=== PATIENT | male | born 1960 | race Caucasian/White ===

== ENCOUNTER 2017-01-08 06:49 | Inpatient (IN) | payer OTHER ==
[2017-01-05 11:00] VITALS: BMI 27.8
[2017-01-08] MEDS ORDERED: CEFAZOLIN 2 GM in DEXTROSE 5%-WATER - 100 ML IVPB ONE (07:13)
[2017-01-08] MEDS ORDERED: oxyCODONE HCL 10 MG SUSTAINED ACTING TABLET PO STA (07:13)
--- NOTE | 2017-01-08 07:14 | HP ---
History & Physical Update - History History: No Change - Physical Physical: No Change - Assessment Assessment: No Change - Plan Plan: No Change
[2017-01-08] MEDS ORDERED: THROMBIN (BOVINE) 5,000 UNIT VIAL TP ONE (07:26)
[2017-01-08] MEDS ORDERED: LIDOCAINE 1%/EPI 1:100000 (20 ML MULTI DOSE VIAL) ONE (07:27)
[2017-01-08] MEDS ORDERED: GUM MASTIC/STORAX/MSAL/ALCOHOL 1 DRP DROPSBTL MC ONE (07:27)
[2017-01-08] MEDS ORDERED: BUPIVACAINE HCL/PF 2.5 MG/ML - 30 ML VIAL IJ ONE (07:27)
[2017-01-08] MEDS ORDERED: MIDAZOLAM HCL 2 MG/2 ML SINGLE DOSE VIAL ONE ×2 (07:47→09:03)
[2017-01-08] MEDS ORDERED: PROPOFOL 20 ML ONE (07:47)
[2017-01-08] MEDS ORDERED: ceFAZolin SODIUM 1 GM VIAL ONE (07:48)
[2017-01-08] MEDS ORDERED: KETOROLAC TROMETHAMINE 30 MG/1 ML VIAL ONE (07:48)
[2017-01-08] MEDS ORDERED: ONDANSETRON 4 MG/2 ML VIAL ONE (07:48)
[2017-01-08] MEDS ORDERED: DEXAMETHASONE SOD PHOSPHATE 4 MG/1 ML VIAL ONE (07:48)
[2017-01-08] MEDS ORDERED: SUCCINYLCHOLINE CHLORIDE 200 MG/10 ML VIAL ONE (07:49)
[2017-01-08] MEDS ORDERED: BUPIVACAINE HCL/PF 0.5% (5MG/ML) 10 ML VIAL ONE (08:14)
[2017-01-08] MEDS ORDERED: ePHEDrine SULFATE 50 MG/1 ML AMPULE ONE (08:38)
[2017-01-08] MEDS ORDERED: LIDOCAINE 1%/EPI 1:100000 (50 ML MULTI DOSE VIAL) INF ONE (08:40)
[2017-01-08] MEDS ORDERED: LACTATED RINGERS SOLUTION 1,000 ML IV SCH ×2 (09:00→10:45)
[2017-01-08] MEDS ORDERED: ONDANSETRON 4 MG/2 ML VIAL IVPUSH PRN (09:00)
[2017-01-08] MEDS ORDERED: BUPIVACAINE HCL/PF 0.25% (2.5MG/ML) 10 ML VIAL IJ ONE (10:36)
[2017-01-08] MEDS ORDERED: ACETAMINOPHEN 1000 MG/100 ML VIAL (NON FORMULARY) IVPB PRN (10:41)
[2017-01-08] MEDS ORDERED: oxyCODONE HCL 5 MG TABLET PO PRN (10:41)
[2017-01-08] MEDS ORDERED: CYCLOBENZAPRINE HCL 10 MG TABLET (FP) PO PRN (10:41)
[2017-01-08] MEDS ORDERED: ONDANSETRON 4 MG/2 ML VIAL IVPB PRN (10:41)
[2017-01-08] MEDS ORDERED: diazePAM CARPU-JECT 10 MG/2 ML DISP.SYRIN IVPUSH ONE (10:46)
--- NOTE | 2017-01-08 11:02 | OP ---
Operative Note - Note: Operative Date: 01/08/17 Pre-Operative Diagnosis: Spondylolithesis L4-L5, lumbar radiculopathy Operation: Posterior lumbar decompression/fusion/instrumentation/transforaminal lumbar interbody fusion L4-L5 with allograft and neuromonitoring Post-Operative Diagnosis: Same as Pre-op Surgeon: Terrell Quintero Psychiatric Arnp: Justin Villalobos Anesthesiologist/YOUTH ACCOMMODATION SUPPORT WORKER: Tino Deshpande Anesthesia: Spinal Estimated Blood Loss (mls): 20 Fluid Volume Replaced (mls): 1,000 Operative Report Dictated: Yes
--- NOTE | 2017-01-08 11:03 | SURG ---
Surgery Tax Staff Accountant Note Tax Staff Accountant: Justin Villalobos PA-C Date of Service: 01/08/17 Diagnosis: Spondylolithesis L4-L5, lumbar radiculopathy Procedure: Posterior lumbar decompression/fusion/instrumentation/transforaminal lumbar interbody fusion L4-L5 with allograft and neuromonitoring I was present for the entirety of the operative procedure. For further detail, please refer to operative report. Visit type - Case Type Case Type: Scheduled Admission - New patient This patient is new to me today: Yes Date on this admission: 01/08/17
[2017-01-08] MEDS: traMADol HCL 50 MG TABLET PO PRN (14:50)
[2017-01-08] MEDS: KETOROLAC TROMETHAMINE 30 MG/1 ML VIAL IVPUSH PRN ×2 (14:56→21:13)
[2017-01-08] MEDS: CEFAZOLIN 2 GM/D5W 50 ML IVPB SCH (18:06)
[2017-01-08] MEDS: oxyCODONE HCL 5 MG TABLET PO PRN (18:14)
[2017-01-08] MEDS: diazePAM 2 MG TABLET PO SCH (19:51)
[2017-01-09] MEDS: oxyCODONE HCL 5 MG TABLET PO PRN ×3 (00:32→09:56)
[2017-01-09] MEDS: CEFAZOLIN 2 GM/D5W 50 ML IVPB SCH ×2 (01:27→09:58)
[2017-01-09] MEDS: morphine CARPU-JECT 4 MG/1 ML DISP.SYRIN IVPUSH PRN ×2 (01:41→06:29)
[2017-01-09] MEDS: diazePAM 2 MG TABLET PO SCH (04:13)
[2017-01-09 06:19] VITALS: BP 121/66; PULSE 77; TEMP 98.6
--- NOTE | 2017-01-09 06:59 | DS ---
Physical Exam: SUBJECTIVE: POD #1 s/p L4/5 TLIF. Patient seen and examined. States he's been oob and ambulating hallways unassisted. Tolerating PO diet. Voiding spontaneously. Denies n/v/f/c, CP, SOB, muscle weakness or tingling. OBJECTIVE: Last Vital Signs Temp Pulse Resp BP Pulse Ox 98.6 F 77 20 121/66 100 01/09/17 06:00 01/09/17 06:00 01/09/17 06:00 01/09/17 06:00 01/09/17 06:17 PHYSICAL EXAM GENERAL: The patient is awake, alert, and fully oriented, in no acute distress. HEAD: Normal with no signs of trauma. EYES: PERRL, extraocular movements intact, sclera anicteric, conjunctiva clear. ENT: Ears normal, nares patent, oropharynx clear without exudates, moist mucous membranes. NECK: Trachea midline, full range of motion, supple. LUNGS: CTA b/l anteriorly HEART: RRR ABDOMEN: Soft, NT. ND. EXTREMITIES: 2+ pulses, warm, well-perfused, no edema. NEUROLOGICAL: CN II - XII grossly intact. Normal speech, gait not observed. PSYCH: Normal mood, normal affect. SKIN: Lumbar surgical incision x2 intact. No hematoma. No erythema. Steri strips intact. (New dressing applied on rounds) HOSPITAL COURSE: Date of Admission:0717 Date of Discharge: 01/09/17 The patient was admitted to the Med-Surg Unit after an elective repair of their L4-L5 spondylolithesis. Now, s/p Posterior lumbar decompression/fusion/ instrumentation/transforaminal lumbar interbody fusion L4-L5 with allograft and neuromonitoring. The day of surgery, the patient ambulated the hallways with assistance. Narcotic and non-narcotic pain management control was achieved with an oral and IV approach. POD #1, the surgical drain was removed fully intact and without incident. An xray was obtained and confirmed hardware placement at L4-L5, no fractures or dislocations. Cynthia-operative IV ABX were administered. DVT prophylaxis was achieved with SCDs and early ambulation. The patient ambulated with Physical Therapy and no services were recommended upon discharge. Narcotic scripts and or muscle relaxants were checked with [place] [facility] prior to escribe. The discharge instructions and an oral pain management plan were reviewed with the patient. All questions answered. Above plan discussed with Dr. Quintero and agreed. Minutes to complete discharge: 25 <Justin Villalobos P - Last Filed: 01/09/17 07:16> Physical Exam: SUBJECTIVE: Patient seen and examined OBJECTIVE: Vital Signs Temperature 98.6 F 01/09/17 06:00 Pulse Rate 77 01/09/17 06:00 Respiratory Rate 20 01/09/17 07:46 Blood Pressure 121/66 01/09/17 06:00 O2 Sat by Pulse Oximetry (%) 100 01/09/17 07:46 PHYSICAL EXAM GENERAL: The patient is awake, alert, and fully oriented, in no acute distress. HEAD: Normal with no signs of trauma. EYES: PERRL, extraocular movements intact, sclera anicteric, conjunctiva clear. ENT: Ears normal, nares patent, oropharynx clear without exudates, moist mucous membranes. NECK: Trachea midline, full range of motion, supple. LUNGS: Breath sounds equal, clear to auscultation bilaterally, no wheezes, no crackles, no accessory muscle use. HEART: Regular rate and rhythm, S1, S2 without murmur, rub or gallop. ABDOMEN: Soft, nontender, nondistended, normoactive bowel sounds, no guarding, no rebound, no hepatosplenomegaly, no masses. EXTREMITIES: 2+ pulses, warm, well-perfused, no edema. NEUROLOGICAL: Cranial nerves II through XII grossly intact. Normal speech, gait not observed. PSYCH: Normal mood, normal affect. SKIN: Warm, dry, normal turgor, no rashes or lesions noted. LABS CBC,CMP WBC 5.9 K/mm3 (4.0-10.8) 01/09/17 07:56 RBC 4.90 M/mm3 (4.00-5.60) 01/09/17 07:56 Hgb 14.7 GM/dl (11.7-16.9) 01/09/17 07:56 Hct 43.6 % (35.4-49) 01/09/17 07:56 MCV 89.0 fl (80-96) 01/09/17 07:56 MCH 29.9 pg (25.7-33.7) 01/09/17 07:56 MCHC 33.6 g/dl (32.0-35.9) 01/09/17 07:56 RDW 13.1 % (11.9-15.9) 01/09/17 07:56 Plt Count 160 K/MM3 (134-434) 01/09/17 07:56 MPV 9.2 fl (7.5-11.1) 01/09/17 07:56 Sodium 136 mmol/L (136-145) 01/09/17 07:56 Potassium 4.0 mmol/L (3.5-5.1) 01/09/17 07:56 Chloride 103 mmol/L (98-107) 01/09/17 07:56 Carbon Dioxide 29 mmol/L (22-28) H 01/09/17 07:56 Anion Gap 4 (8-16) L 01/09/17 07:56 BUN 17 mg/dl (7-18) 01/09/17 07:56 Creatinine 1.0 mg/dl (0.6-1.3) 01/09/17 07:56 Random Glucose 101 mg/dl (74-106) 01/09/17 07:56 Calcium 8.6 mg/dl (8.4-10.2) 01/09/17 07:56 HOSPITAL COURSE: Date of Admission:01/08/17 Date of Discharge: 01/09/17 The patient was admitted to the Med-Surg Unit after an elective repair of their L4-5 stenosis, reherniation. The day of surgery, the patient ambulated the hallways with assistance. Narcotic and non-narcotic pain management control was achieved with an oral and IV approach. POD #1, the surgical drain was removed fully intact and without incident. An xray was obtained and confirmed hardware placement at L4-5, no fractures or dislocations. Cynthia-operative IV ABX were administered. DVT prophylaxis was achieved with SCDs and early ambulation. The patient ambulated with Physical Therapy and no services were recommended upon discharge. Narcotic scripts and or muscle relaxants were checked with [place] [facility] prior to escibe. The discharge instructions and an oral pain management plan were reviewed with the patient. All questions answered. Above plan discussed with Dr. Quintero and agreed. Patient seen and examined Agree with Above D/C Planning <Terrell Quintero - Last Filed: 01/09/17 15:48> Visit type - Case Type Case Type: Scheduled Admission - New patient This patient is new to me today: Yes Date on this admission: 01/09/17 <Justin Villalobos - Last Filed: 01/09/17 07:16>
[2017-01-09 08:23] LABS: MCH 29.9 pg (25.7-33.7); MCHC 33.6 g/dl (32.0-35.9); MEAN PLT VOLUME 9.2 fl (7.5-11.1); PLATELET COUNT 160 K/MM3 (134-434); RDW 13.1 % (11.9-15.9); WHITE BLOOD COUNT 5.9 K/mm3 (4.0-10.8)
[2017-01-09 08:32] LABS: ANION GAP 4 (8-16); CALCIUM 8.6 mg/dl (8.4-10.2); CO2 29 mmol/L (22-28); GLUCOSE,RANDOM 101 mg/dl (74-106)
[2017-01-09] MEDS: traMADol HCL 50 MG TABLET PO PRN (09:58)
[2017-01-09] MEDS: KETOROLAC TROMETHAMINE 30 MG/1 ML VIAL IVPUSH PRN (10:08)
[2017-01-09] MEDS ORDERED: diazePAM 2 MG TABLET PO SCH (12:00)
[2017-01-09] MEDS ORDERED: KETOROLAC TROMETHAMINE 30 MG/1 ML VIAL IVPUSH PRN (12:09)
--- NOTE | 2017-01-09 12:45 | OP ---
DATE OF OPERATION: 01/08/2017 PREOPERATIVE DIAGNOSES: 1. Recurrent disk herniation, L4-L5. 2. Spinal stenosis. 3. Post-laminectomy syndrome. POSTOPERATIVE DIAGNOSES: 1. Recurrent disk herniation, L4-L5. 2. Spinal stenosis. 3. Post-laminectomy syndrome. PROCEDURE PERFORMED: 1. Transforaminal lumbar interbody fusion at L4-L5. 2. Placement of interbody cage. 3. Placement of instrumentation. 4. Revision hemilaminectomy. SURGEON: Terrell Quintero MD NEWBORN PHOTOGRAPHER: JANNETTE Alicea ESTIMATED BLOOD LOSS: 50 mL INTRAVENOUS FLUIDS: Per Anesthesia. COMPLICATIONS: None. ANESTHESIA: Spinal. DISPOSITION: Patient brought to the PACU in stable condition. INDICATION FOR SURGERY: The patient is a 56-year-old gentleman who has been suffering from pain in his back, down his legs. X-rays and MRI were completed which noted that he had a recurrent disk herniation at L4-5 with stenosis at that level. He had gone through an exhaustive course of treatment for this which included medications, physical therapy, as well as injection. Unfortunately, his pain continued to persist despite all this. At this point, risks, benefits, and alternatives were discussed, and the patient consented to surgery. DESCRIPTION OF PROCEDURE: The patient was brought to the operating room by the anesthesia staff. After appropriate patient identification was performed, spinal anesthesia was given. He was placed prone onto the [place] frame with all areas of bony prominences well padded at this time. The C-arm was brought in and the L4 and L5 pedicles were marked off. Next, 10 mL of lidocaine with epinephrine were injected into his back at this time. His back was prepped and draped in a sterile manner. At this point, timeout was completed. An incision was made from the top of L4 down to the bottom of L5. Dissection was carried down to the fascia and the fascia was split open at this time. Under C-arm guidance, trocars were advanced into both the L4 and L5 pedicles. Through the trocars, a wire was inserted. Over the wires, tap was performed and screws inserted. On the left-hand side, the L4-5 facet joint was visualized. It was removed with a bur. The disk was visualized and entered using a series of pituitaries, Kerrisons, and curettes. A diskectomy was completed at this time. The endplates were decorticated at this time. A cage filled with bone graft was placed in. Bone graft was also layed down into the disk space. Tulip heads were placed on the screws. A stacia was measured and placed on. Caps were placed on. Final tightening and compression were applied. On the right-hand side, a stacia was measured and placed in. Caps were placed on. Compression and final tightening were performed. All bleeding was well controlled at this time. All x-ray instrumentation was removed. AP and lateral x-rays confirmed the instrumentation to be in good position and neuromonitoring was stable throughout the operative course. The fascia was closed with a no. 1 Vicryl suture. The subcutaneous tissue was closed with 2-0 Vicryl suture. Skin was closed with 3-0 Monocryl suture. Dermabond was applied. Steri-Strips were applied. Sterile dressing was applied. Patient was placed supine on the OR bed and brought to the PACU in stable condition. Jozef [id number] MTDD
== END 2017-01-09 12:35 | disposition home or self-care (01) | DRG 304 ==
LOC: FM/S 06:49 → UNDOADMIN 06:49 → EDSTATUS 08:15 → FM/S 10:41 → FASUSAT 11:30 → FM/S 11:35 → EDSTATUS 01-09 08:15 → FASUSAT 01-09 11:31 → FM/S 01-09 11:31 → UNDOADMIN 01-09 15:11 → FM/S 01-09 15:11
PROVIDERS: ADMIT Orthopaedic Surgery Orthopaedic Surgery of the Spine; ATTEND Orthopaedic Surgery Orthopaedic Surgery of the Spine
PROC: 0SG00A1 (ICD-10-PCS; 2017-01-08)
PROC: 0SB40ZZ Excision of Lumbosacral Disc, Open Approach (ICD-10-PCS; principal; 2017-01-08 08:56)
DX: M51.26 Other intervertebral disc displacement, lumbar region (principal); M48.06 Spinal stenosis, lumbar region; M96.1 Postlaminectomy syndrome, not elsewhere classified; Y83.9 Surgical procedure, unspecified as the cause of abnormal reaction of the patient, or of later complication, without mention of misadventure at the time of the procedure
CPT/HCPCS: 36415; 72100-TC; 76001-TC; 80048; 85027; 94010; 94760; 97116-GP; 97161-GP